=== PATIENT | female | born 1995 | race Caucasian/White ===

== ENCOUNTER 2024-01-28 06:25 | Emergency (ER) | payer MEDICAID ==
[~2024-01-28] VITALS: Ht 154.9 cm; Wt 56.4 kg
[2024-01-28 06:40] VITALS: BP 112/58; TEMP 98.2
[2024-01-28 07:43] VITALS: PULSE 95; RESP 20; O2SAT 98
[2024-01-28] MEDS: IPRATROPIUM/ALBUTEROL 0.5-3(2.5)MG/3ML NEB HHN ONE (07:43)
[2024-01-28] MEDS: ALBUTEROL (0.083%) 2.5MG/3ML NEB HHN ONE (07:44)
[2024-01-28] MEDS: AZITHROMYCIN 500 MG TABLET PO ONE (07:46)
[2024-01-28] MEDS: PREDNISONE 20MG TABLET PO ONE (07:46)
[2024-01-28] MEDS: MAGNESIUM OXIDE 400MG TABLET PO SCH (07:46)
[2024-01-28 07:47] LABS: BASOPHILS % 0.5 % (0.0-2.0); EOSINOPHILS % 12.5 % (0.0-5.0); HEMATOCRIT. 40.5 % (36.0-48.0); HEMOGLOBIN. 14.1 g/dL (12.0-16.0); LYMPHOCYTES % 16.3 % (20.0-50.0); MEAN CORPUSCULAR HEMOGLOBIN 32.7 pg (28.0-32.0); MEAN CORPUSCULAR HGB CONC 34.7 g/dL (31.0-37.0); MEAN CORPUSCULAR VOLUME 94.2 fL (81.0-99.0); MEAN PLATELET VOLUME 7.4 fl (7.4-10.4); MONOCYTES % 8.3 % (2.0-8.0); NEUTROPHILS % 62.4 % (40.0-76.0); PLATELET 314 x1000/uL (130-400); RED CELL DISTRIBUTION WIDTH 12.6 % (11.6-14.6); WHITE BLOOD COUNT 10.9 x1000/uL (4.5-11.0)
[2024-01-28 08:27] LABS: HCG SCREEN NEGATIVE
[2024-01-28 09:21] LABS: CHLORIDE 107 mEq/L (98-107); POTASSIUM 3.9 mEq/L (3.5-5.1); SODIUM 139 mEq/L (136-145)
[2024-01-28 09:22] LABS: CARBON DIOXIDE 22 mEq/L (21-32)
[2024-01-28 09:23] LABS: CALCIUM 9.3 mg/dL (8.7-10.4)
[2024-01-28 09:27] LABS: CREATININE 0.8 mg/dL (0.6-1.0); GLUCOSE 106 mg/dL (70-105)
[2024-01-28 09:28] LABS: UREA NITROGEN BLOOD 10 mg/dL (9-23)
[2024-01-28] MEDS ORDERED: AZIT250T12 MT (09:41)
[2024-01-28] MEDS ORDERED: P50 MT (09:41)
[2024-01-28] MEDS ORDERED: ALBU90AE INH (09:41)
== END 2024-01-28 09:53 | disposition home or self-care (01) ==
LOC: ER 06:35
DX: R06.02 Shortness of breath (principal); J45.909 Unspecified asthma, uncomplicated; F17.200 Nicotine dependence, unspecified, uncomplicated; Z98.890 Other specified postprocedural states
CPT/HCPCS: 80048; 84703; 83880; 85025; 36415; 71045; 94640; 93005; 99285; J7512; Z7610 ×4